=== PATIENT | female | born 1985 | race Caucasian/White ===

== ENCOUNTER 2016-08-17 13:29 | Inpatient (IN) | payer MEDICAID, OTHER ==
[2016-08-17] MEDS ORDERED: OBEPIDURAL* 0 ML ONE (14:02)
[2016-08-17 14:23] LABS: Hematocrit 38 % (35-47); Hemoglobin 12.7 g/dl (12.0-16.0); Mean Corpuscular HGB Conc 34 g/dl (31-36); Mean Corpuscular Hemoglobin 29 pg (27-31); Mean Corpuscular Volume 85 fL (80-97); Mean Platelet Volume 11 um3 (7.4-10.4); Red Blood Count 4.42 10^6/ul (4.0-5.4); Red Cell Distribution Width 14 % (10.5-15); White Blood Count 8.8 10^3/ul (3.5-10.8)
[2016-08-17] MEDS ORDERED: fentaNYL* 50 MCG/ML 2 ML VIAL (100 MCG VIAL) ONE (14:24)
[2016-08-17] MEDS ORDERED: Famotidine TAB* 20 MG PO PRN (15:27)
[2016-08-17] MEDS ORDERED: Phenylephrine IV* 40 MCG/ML 10 ML SYRINGE IV PUSH PRN ×2 (15:27)
[2016-08-17] MEDS ORDERED: Sodium Citrate/Citric Acid* 15 ML UDC PO PRN (15:27)
[2016-08-17] MEDS ORDERED: Mineral Oil Sterile, TOPICAL* 25 ML BTL ONE (15:38)
[2016-08-17] MEDS ORDERED: Oxytocin in LR* 20 UNITS/1,000 ML BAG IVPB ONE (15:48)
[2016-08-17] MEDS ORDERED: OBEPIDURAL* 250 ML EPIDURAL SCH (16:00)
[2016-08-17] MEDS ORDERED: Witch Hazel PAD* JAR ONE (17:00)
[2016-08-17] MEDS ORDERED: Dibucaine 1% 28.35 GM TUBE ONE (17:00)
[2016-08-17] MEDS ORDERED: Witch Hazel PAD* JAR TOPICAL PRN (17:31)
[2016-08-17] MEDS ORDERED: Dibucaine 1% 28.35 GM TUBE PR PRN (17:31)
[2016-08-17] MEDS ORDERED: Acetaminophen TAB* 325 MG PO PRN (17:31)
[2016-08-17] MEDS ORDERED: Glycerin ADULT SUPP PR PRN (17:31)
[2016-08-17] MEDS: Docusate CAP* 100 MG PO SCH (19:40)
[2016-08-17] MEDS: Ibuprofen TAB* 600 MG PO PRN (19:40)
[2016-08-17] MEDS ORDERED: Simethicone TAB* 80 MG TAB.CHEW PO SCH (21:00)
[2016-08-18] MEDS: Ibuprofen TAB* 600 MG PO PRN ×3 (04:23→16:31)
[2016-08-18 06:06] LABS: Hematocrit 30 % (35-47); Hemoglobin 9.9 g/dl (12.0-16.0); Mean Corpuscular HGB Conc 33 g/dl (31-36); Mean Corpuscular Hemoglobin 28 pg (27-31); Mean Corpuscular Volume 85 fL (80-97); Mean Platelet Volume 11 um3 (7.4-10.4); Red Cell Distribution Width 14 % (10.5-15); White Blood Count 11.6 10^3/ul (3.5-10.8)
[2016-08-18] MEDS: Docusate CAP* 100 MG PO SCH ×3 (08:40→20:19)
[2016-08-18] MEDS: Ferrous Gluconate TAB* 324 MG TAB PO SCH ×2 (08:40→20:19)
[2016-08-18] MEDS ORDERED: Varicella Virus Vaccine Live* 0.5 ML VIAL SUBCUT ONE (09:00)
[2016-08-18 19:19] VITALS: BP 117/68
[2016-08-19] MEDS: Docusate CAP* 100 MG PO SCH (08:15)
[2016-08-19] MEDS: Ferrous Gluconate TAB* 324 MG TAB PO SCH (08:15)
[2016-08-19] MEDS: Ibuprofen TAB* 600 MG PO PRN (08:15)
== END 2016-08-19 12:41 | disposition home or self-care (01) | DRG 560 ==
LOC: MCHOBOUT 13:29 → MCHOB 13:36
PROVIDERS: ADMIT Obstetrics & Gynecology; ATTEND Midwife
PROC: 10E0XZZ Delivery of Products of Conception, External Approach (ICD-10-PCS; principal; 2016-08-17)
PROC: 10907ZC Drainage of Amniotic Fluid, Therapeutic from Products of Conception, Via Natural or Artificial Opening (ICD-10-PCS; 2016-08-17)
PROC: 0HQ9XZZ Repair Perineum Skin, External Approach (ICD-10-PCS; 2016-08-17)
DX: O48.0 Post-term pregnancy (principal); D64.9 Anemia, unspecified; K42.9 Umbilical hernia without obstruction or gangrene; O70.0 First degree perineal laceration during delivery; O90.81 Anemia of the puerperium; Z3A.40 40 weeks gestation of pregnancy; Z37.0 Single live birth
CPT/HCPCS: 36415; 85025; 86850; 86900; 86901; A9270-GY; J3010

== ENCOUNTER 2016-09-11 08:07 | Day surgery (SDC) | payer OTHER ==
[~2016-09-11 08:07] MED LIST: Buffered Lidocaine 1% SYR 3ML* 3 ML/SYR SYRINGE INTRADERM ONE; Famotidine IV* 10 MG/ML 2 ML (20 mg) IV ONE; Morphine INJ* 2 MG/ML 1 ML CARPUJECT IV PRN; PROCHLORPERAZINE INJ 5 MG/ML 2 ML VIAL IV PRN; fentaNYL* 50 MCG/ML 2 ML VIAL (100 MCG VIAL) IV PRN; oxyCODONE/Acetamin 5/325 MG* TAB PO PRN
[2016-09-11] MEDS ORDERED: Famotidine IV* 10 MG/ML 2 ML (20 mg) ONE (08:09)
[2016-09-11] MEDS ORDERED: fentaNYL* 50 MCG/ML 2 ML VIAL (100 MCG VIAL) ONE (08:26)
[2016-09-11] MEDS ORDERED: KETAMINE HCL* 50 MG/ML 10 ML VIAL ONE (08:26)
[2016-09-11] MEDS ORDERED: Midazolam* 1 MG/ML 5 ML VIAL (5 MG) ONE (08:26)
[2016-09-11] MEDS ORDERED: Bupivacaine 0.5% W/EPI SDV* 30 ML VIAL ONE (08:27)
[2016-09-11] MEDS ORDERED: Lidocaine 1% INJ* 10 MG/ML 30 ML SDV ONE (08:27)
[2016-09-11 08:31] LABS: UR Preg Kit Lot# 6060104
[2016-09-11 08:32] LABS: Manual Entry Verification AS; UR Preg Internal Control QC Line Present
[2016-09-11] MEDS ORDERED: Ondansetron INJ* 2 MG/ML VIAL ONE (09:35)
[2016-09-11] MEDS ORDERED: Lidocaine 2% PF * 5 ML VIAL ONE (09:35)
[2016-09-11] MEDS ORDERED: Propofol* 10 MG/ML 20 ML BTL IV PUSH ONE (09:35)
[2016-09-11] MEDS ORDERED: Dexamethasone IV* 4 MG/ML 1 ML (4 MG) ONE (09:35)
[2016-09-11] MEDS ORDERED: Ketorolac INJ* 30 MG/ML 1 ML VIAL ONE (09:35)
--- NOTE | 2016-09-11 09:55 | PN ---
Progress Note - Progress Note Note: Brief Op Note: Preop Dx: umbilical hernia Postop Dx: same Procedure: open (primary) repair umbilical hernia Anesthesia: GET Surgeon: Wil[place] Asst: REEMA Wetzel EBL: none Fluids: Drains: none
[2016-09-11] MEDS ORDERED: oxyCODONE/Acetamin 5/325 MG* TAB ONE (10:23)
[2016-09-11 11:37] VITALS: BP 103/68
--- NOTE | 2016-09-11 11:47 | OP ---
CC: [facility]; Keenan Nielsen MD OPERATIVE SUMMARY: DATE OF OPERATION: 09/11/16 DATE OF : 85 SURGEON: Pippa Núñez MD FRANCHISE SALES REPRESENTATIVE: REEMA Green PRE-OP DIAGNOSIS: Umbilical hernia. POST-OP DIAGNOSIS: Umbilical hernia. PROCEDURE PERFORMED: Open repair of umbilical hernia. INDICATIONS: Ms. Florez is a 31-year-old female who presented to the office with a symptomatic umb ilical hernia. Initially, she presented during , but awaited until after delivery to [facility] to plan to get it fixed and exam at that time was consistent with umbilical hernia, so plan was ma de for repair on the day of the surgery. DESCRIPTION OF PROCEDURE: She was brought to the operating room, placed on the OR table in supine p osition, and given general anesthesia. The abdomen was then prepped and draped in the usual sterile fashion. After infiltrating with the local anesthetic, a curvilinear infraumbilical incision was m galen and subcutaneous tissue was divided with the combination of sharp and blunt dissection down to t he level of fascia. The umbilical stalk was then encircled using blunt dissection and a Raymond josh ined drawn around the umbilical stalk. The hernia was from the umbilical stalk using a co mbination of blunt and sharp dissection. Once the umbilical stalk and hernia were from ea ch other, the hernia contents were reduced and the defect was identified. It was noted to be approx imately 2 cm linear defect in the fascia of the abdominal wall. Closure was accomplished with inter rupted 0 Biosyn stitches and once this was done, the umbilical stalk was tagged back down to the [facility] using 3-0 Polysorb and then subcutaneous tissue was reapproximated with 3-0 Polysorb and the ski n was closed with 4-0 Surgipro in a subcuticular fashion. Steri-Strips and a dry sterile dressing w ere applied. All sponge and instrument counts were correct. The patient tolerated the procedure we ll and was transferred to recovery in a stable condition. [id number]/[facility] #: [id number]
== END 2016-09-11 12:10 | disposition home or self-care (01) ==
LOC: OR 08:07
PROVIDERS: ATTEND Surgery
DX: K42.9 Umbilical hernia without obstruction or gangrene (principal)
CPT/HCPCS: 81025; A9270-GY; J1100; J1885; J2250; J2405; J2704; J3010